=== PATIENT | male | born 1960 | race Caucasian/White ===

== ENCOUNTER → 2017-02-24 | Outpatient (CLI) | payer BC ==
[2014-02-22 09:43] VITALS: BP 140/92
[~2017-02-24] MED LIST: ASPI-482 PO; LISI2.5T PO; OMEG300C PO
--- NOTE | 2017-02-24 15:23 | KCIC ---
CALCANEUS LEFT History: Left heel pain for one month Comparison: None. Findings: 2 views of the left calcaneus are submitted. There is plantar calcaneal enthesophyte. No acute fracture or dislocation is identified. Impression: 1. There is plantar calcaneal enthesophyte, no acute osseous abnormality identified. Electronically signed by: Fady Gutierrez MD (02/24/2017 3:20 PM)
== END | disposition home or self-care (01) ==
LOC: KCIC 14:43
PROVIDERS: ATTEND Nurse Practitioner Family
DX: M79.672 Pain in left foot (principal)
CPT/HCPCS: 73650

== ENCOUNTER → 2018-10-25 | Outpatient (CLI) | payer BC ==
[2014-02-22 09:43] VITALS: BP 140/92
--- NOTE | 2018-10-25 12:52 | RAD ---
MR#: [id number] Date of Study: 10/25/2018 Ordering Physician: SCOTT BOSE Referring Physician: ANNA DAVID Tech: RT Erick (R) (N) APPROVED REPORT Test Type: Exercise Stress Nurse/Tech: RT Erick (R) (N) Test Indications: palpitations Cardiac History: htn, Medications: See Electronic Medical Record Medical History: See Electronic Medical Record Resting Heart Rate: 64 bpm Resting Blood Pressure: 129/83mmHg Pretest Chest Pain: No chest pain Nurse/Tech Notes S1S@, lungs CTA Consent: The procedure was explained to the patient in lay terms. Informed consent was witnessed. Vadim eout was entered into [employer]. History and Stress Test performed by RT Erick (Darvin) (N) Stress Symptoms Dyspnea ,Fatigue POST EXERCISE Reason for Termination: Reached target heart rate Target HR: Yes Max HR: 142 bpm 88% of Maximum Predicted HR: 136 bpm Exercise duration: 9:04 min:sec, 3 Stage Exercise capacity: 10METs Max Blood Pressure: 166/94mmHg Blood Pressure response to exercise: Normal blood pressure response during stress. Heart Rate response to exercise: wnl Chest Pain: No. Arrhythmia: No. [address] Change: No. INTERPRETATION Stress EKG Conclusion: The resting EKG shows a sinus rhythm and an incomplete right bundle branch blo ck. The stress EKG shows no significant changes from baseline. No EKG evidence of stress-induced ischemia. Imaging Protocol IMAGE PROTOCOL: Rest Tc-99m/stress Tc-99m 1 day Rest: Stress: Viability: Radiopharm.Tc99m GfvkvqqtgIm65w Sestamibi Lyvs97bZx 33mCi Duration 15min. 10min. Img Date 10/25/2018 10/25/2018 Inj-Img Vzdr85yjq. 60min. Rest Admin Site:IV - Left HandAdministrator:FREDDIE Mejias, ARRT (R)(N) Stress Admin Site: IV - Left HandAdministrator: FREDDIE Mejias, ARRT (R)(N) STRESS DATA End Diast. Vol.89.0mlAv. Heart Rate87.0bpm End Syst. Vol.22.0mlCO Index BSA0.0L/min Myocardial Kxoc840.0gEject. Vdqdsgau22.0% Stress Rates Pk. Fill Rate4.72EDV/secLVtime Pk. Fill 198.70msec Pk. Empty Rate5.91ESV/secLVtime Pk. Jdtei412.19msec 1/3 Pk. Fill1.21EDV/sec Stress Scores Regional WT0.00Summed WT0.00 Regional WM0.00Summed WM0.00 LV Perfusion The stress scans showed no significant defects. The rest scans showed no significant defects. Nuclear medicine imaging shows no reversible ischemia or infarct. Wall Motion Left ventricular systolic function appears normal. Ejection fraction of greater than 70%. LV Perf. Quant 17 Seg. SSS0.00 17 Seg. SRS0.00 17 Seg. SDS0.00 Stress Defect Extent (% LAD)0.00Rest Defect Extent (% LAD)0.00Rev. Defect Extent (% LAD)0.00 Stress Defect Extent (% LCX) 0.00Rest Defect Extent (% LCX)0.00Rev. Defect Extent (% LCX)0.00 Stress Defect Extent (% RCA)0.00Rest Defect Extent (% RCA)0.00Rev. Defect Extent (% RCA)0.00 Stress Defect Extent (% DAISHA)0.00Rest Defect Extent (% DAISHA)0.00Rev. Defect Extent (% DAISHA)0.00 Conclusion 1. Good exercise tolerance. 2. No chest pain reported with exertion. 3. No EKG evidence of stressed induced ischemia. 4. Nuclear imaging shows no reversible ischemia or infarct. 5. Normal left ventricular systolic function with an ejection fraction of greater than 70%. 6. Low risk treadmill nuclear stress test. Signed by : Dayo Rubin MD Electronically Approved : 10/25/2018 12:51:53
--- NOTE | 2018-10-25 13:19 | CARD ---
MR#: [id number] Date of Study: 10/25/2018 Ordering Physician: SCOTT BOSE, Referring Physician: SCOTT BOSE Tech: Alanis Mauro RDCS APPROVED REPORT EXAM: Two-dimensional and M-mode echocardiogram with Doppler and color Doppler. Other Information Quality : Good INDICATION Chest Pain 2D DIMENSIONS RVDd2.9 (2.9-3.5cm)Left Atrium(2D)3.1 (1.6-4.0cm) IVSd0.9 (0.7-1.1cm)Aortic Root(2D)3.0 (2.0-3.7cm) LVDd5.1 (3.9-5.9cm)LVOT Diameter2.4 (1.8-2.4cm) PWd0.9 (0.7-1.1cm)LVDs3.0 (2.5-4.0cm) FS (%) 30.0 %SV84.9 ml LVEF(%)60.0 (>50%) Aortic Valve AoV Peak Rinku.168.1cm/sAoV VTI26.5cm AO Peak GR.11.3mmHgLVOT Peak Rinku.150.3cm/s LVOT VTI 25.11cmAO Mean GR.6mmHg DEMIAN (VMAX)4.18ye6PSD (VTI)4.25cm2 Mitral Valve MV E Jpdvcama87.2cm/sMV DECEL KOVN412wf MV A Lnkwufnt13.4cm/sMV JTI54cy E/A Ratio1.1MVA (PHT)3.10cm2 TDI E/Lateral E'10.8E/Medial E'12.2 Pulmonary Vein S1 Hjhcstsl84.8cm/sD2 Wndkzzcz69.1cm/s LEFT VENTRICLE The left ventricle is normal size. There is normal left ventricular wall thickness. The left ventricu lar systolic function is normal and the ejection fraction is within normal range. The Ejection Fracti on is 55-60%. There is normal LV segmental wall motion. Transmitral Doppler flow pattern is Grade I-a bnormal relaxation pattern. RIGHT VENTRICLE The right ventricle is normal size. The right ventricular systolic function is normal. ATRIA The left atrium size is normal. The right atrium size is normal. The interatrial septum is intact wit h no evidence for an atrial septal defect or patent foramen ovale as noted on 2-D or Doppler imaging. AORTIC VALVE The aortic valve is calcified but opens well. Doppler and Color Flow revealed no significant aortic r egurgitation. There is no significant aortic valvular stenosis. MITRAL VALVE The mitral valve is calcified but opens well. There is no evidence of mitral valve prolapse. There is no mitral valve stenosis. Doppler and Color Flow revealed no mitral valve regurgitation noted. TRICUSPID VALVE The tricuspid valve is normal in structure and function. Doppler and Color Flow revealed no tricuspid valve regurgitation noted. There is no tricuspid valve stenosis. PULMONIC VALVE The pulmonic valve is not well visualized. Doppler and Color Flow revealed no pulmonic valvular regur gitation. There is no pulmonic valvular stenosis. GREAT VESSELS The aortic root is normal in size. The ascending aorta is mildly dilated at 3.5 cm. The IVC is normal in size and collapses >50% with inspiration. PERICARDIAL EFFUSION There is no evidence of significant pericardial effusion. Critical Notification Critical Value: No <Conclusion> The left ventricle is normal size. The left ventricular systolic function is normal and the ejection fraction is within normal range. The Ejection Fraction is 55-60%. There is no significant aortic valvular stenosis. Doppler and Color Flow revealed no significant aortic regurgitation. Doppler and Color Flow revealed no mitral valve regurgitation noted. Doppler and Color Flow revealed no tricuspid valve regurgitation noted. Signed by : Dayo Rubin MD Electronically Approved : 10/25/2018 13:18:34
== END | disposition home or self-care (01) ==
LOC: NM 09:18
PROVIDERS: ATTEND Internal Medicine Cardiovascular Disease
DX: R00.8 Other abnormalities of heart beat (principal); R61 Generalized hyperhidrosis; R00.2 Palpitations; I10 Essential (primary) hypertension
CPT/HCPCS: 78452; 93017; 93306; 96374; 96376; A9500